=== PATIENT | male | born 2000 | race Caucasian/White ===

== ENCOUNTER 2020-09-10 15:03 | Emergency (ER) | payer BC ==
[~2020-09-10] VITALS: Ht 182.9 cm; Wt 72.1 kg
--- NOTE | 2020-09-10 17:03 | NUR ---
[employer] SUPERVISOR: PT TO ROOM FROM [facility]
--- NOTE | 2020-09-10 17:36 | NUR ---
IRMA [phone]
--- NOTE | 2020-09-10 18:42 | NUR ---
REPORT TO ELLIOTT
--- NOTE | 2020-09-10 18:43 | NUR ---
REPORT FROM CRYSTAL SALGUERO
[2020-09-10 19:17] VITALS: BP 133/77
--- NOTE | 2020-09-10 19:17 | NUR ---
Patient given discharge instructions and they have confirmed that they understand the instructions. Patient ambulatory with steady gait. NAD, all questions answered appropriately, denies additional needs at this time. No personal belongings left in room after discharge.
== END 2020-09-10 19:19 | disposition home or self-care (01) ==
LOC: ED 17:46
DX: S09.90XA Unspecified injury of head, initial encounter (principal); E10.9 Type 1 diabetes mellitus without complications; W22.8XXA Striking against or struck by other objects, initial encounter; Y93.89 Activity, other specified; Y92.410 Unspecified street and highway as the place of occurrence of the external cause; Y99.0 Civilian activity done for income or pay
CPT/HCPCS: 70450; 99284